=== PATIENT | male | born 1945 | race Caucasian/White ===

== ENCOUNTER 2020-11-01 09:23 | Day surgery (SDC) | payer MEDICARE ==
[2020-10-24 11:22] LABS: BASOPHILS % (AUTO) 0.5 % (0-1); EOSINOPHILS # (AUTO) 0.2 X10'3 (0-0.9); EOSINOPHILS % (AUTO) 4.4 % (0-6); LYMPHOCYTES # (AUTO) 1.3 X10'3 (1.1-4.8); LYMPHOCYTES % (AUTO) 28.3 % (21-51); MEAN CORPUSCULAR HEMOGLOBIN 29.9 PG (27.0-31.0); MEAN CORPUSCULAR HGB CONC 33.2 g/dL (33.0-36.5); MEAN CORPUSCULAR VOLUME 89.9 FL (78-98); MEAN PLATELET VOLUME 8.8 FL (7.4-10.4); MONOCYTES # (AUTO) 0.4 X10'3 (0-0.9); MONOCYTES % (AUTO) 8.7 % (2-12); NEUTROPHILS # (AUTO) 2.6 X10'3 (1.8-7.7); NEUTROPHILS % (AUTO) 58.1 % (42-75); PRE OP HEMATOCRIT 40.3 % (42.0-52.0); PRE OP HEMOGLOBIN 13.4 g/dL (14.0-17.9); PRE OP PLATELET COUNT 298 X10'3 (140-440); RED BLOOD COUNT 4.48 X10'6 (4.70-6.10); RED CELL DISTRIBUTION WIDTH 12.7 % (11.5-14.5)
[2020-10-24 11:26] LABS: CLARITY,URINE CLEAR (Clear); COLOR,URINE YELLOW (Yellow); GLUCOSE, URINE NEGATIVE (Neg); KETONES,URINE NEGATIVE (Neg); LEUKOCYTE ESTERASE ,URINE TRACE (Neg); NITRITES, URINE NEGATIVE (Neg); OCCULT BLOOD,URINE NEGATIVE (Neg); PH,URINE 7.5 (4.8-8.0); PROTEIN,URINE NEGATIVE (Neg); UROBILINOGEN,URINE 0.2 E.U/dL (0.2-1.0)
[2020-10-24 11:32] LABS: ALBUMIN 4.2 G/DL (3.4-5.0); ALBUMIN/GLOBULIN RATIO 1.1 (1.1-1.5); ALKALINE PHOSPHATASE 91 IU/L (46-116); BLOOD UREA NITROGEN 24 MG/DL (7-18); BUN/CREATININE RATIO 21.8 (5.4-32.0); CALCIUM 9.1 MG/DL (8.5-10.1); CHLORIDE 106 MMOL/L (99-107); PRE OP ALT 24 U/L (30-65); PRE OP ANION GAP 10 (8-16); PRE OP AST 21 U/L (10-37); PRE OP BILIRUB, TOTAL 0.4 MG/DL (0.0-1.0); PRE OP GLUCOSE 98 MG/DL (70-104); PRE OP POTASSIUM 5.2 MMOL/L (3.4-5.1); PRE OP SODIUM 141 MMOL/L (135-145); TOTAL CARBON DIOXIDE 24.8 MMOL/L (24-32); TOTAL PROTEIN 8.1 G/DL (6.4-8.2); eGFR 65 ML/MIN
[2020-10-24 11:47] LABS: UA COLLECTION TYPE CLN CATCH MIDSTREAM
[2020-10-24 12:09] LABS: SQUAMOUS EPITHELIAL CELL,UR FEW /LPF (FEW)
[2020-10-24 12:10] LABS: BACTERIA,URINE NONE SEEN /HPF (Neg); RBC,URINE 0-2 /HPF (0-2); WBC,URINE 0-4 /HPF (0-4)
[2020-11-01] VITALS (9 sets, daily range): BP systolic 131–147; BP diastolic 62–93
[~2020-11-01] VITALS: Ht 170.2 cm; Wt 89.6 kg
[~2020-11-01 09:23] MED LIST: AMA1T PO; ASPI-612 PO; GEMF600T89 PO; LISI-604 PO; METF-438 PO; OMEP20TA23 PO; PIRO20CA2 PO; bacitracin 15gm ointment TP ONE; ceFAZolin 2gm in dextrose, iso 50 ML IV ONE; famotidine 20mg tablet PO ONE; ringers solution, lacted 1,000 ML IV SCH
[2020-11-01] MEDS ORDERED: sevoflurane 250ml liquid IH ONE (10:18)
[2020-11-01] MEDS ORDERED: fentaNYL/PF 50MCG/1 ML 2ML syringe ONE (10:24)
[2020-11-01] MEDS ORDERED: midazolam 2 mg/2 ml injection ONE (10:25)
[2020-11-01] MEDS ORDERED: BUPIVAcaine/PF 2.5 mg/ml (0.25%) 30ml vial ONE (10:38)
[2020-11-01] MEDS ORDERED: ondansetron/PF 4mg/2ml inj ONE (10:56)
[2020-11-01] MEDS ORDERED: LIDOcaine 2% (20mg/ml) 5ml vial ONE (10:56)
[2020-11-01] MEDS ORDERED: propofol inj 20 ML IV ONE ×2 (10:56)
[2020-11-01] MEDS ORDERED: dexamethasone sod phosphate 4mg/ml inj. ONE (10:56)
[2020-11-01] MEDS ORDERED: LIDOcaine 1%/PF 5ML 10 MG/ML VIAL ONE (10:56)
[2020-11-01] MEDS ORDERED: morphine 10mg/ml inj. ONE (11:06)
[2020-11-01] MEDS ORDERED: labetalol 20mg/4ml (5mg/ml) syringe IV PRN (11:10)
[2020-11-01] MEDS ORDERED: ondansetron/PF 4mg/2ml inj IV PRN (11:10)
[2020-11-01] MEDS ORDERED: hydrALAZINE 20mg/ml inj. IV PRN (11:10)
[2020-11-01] MEDS ORDERED: acetaminophen 1,000mg/100ml IV 100 ML IV PRN (11:10)
[2020-11-01] MEDS ORDERED: HYDROmorphone/PF 0.2 MG/ML SYRINGE IV PRN ×2 (11:10)
[2020-11-01] MEDS ORDERED: proCHLORperazine 10 MG/2 ml inj IV PRN (11:10)
[2020-11-01] MEDS ORDERED: meperidine/PF 25mg/ml syringe IV PRN ×3 (11:10)
[2020-11-01] MEDS ORDERED: ringers solution, lacted 1,000 ML IV SCH (11:10)
--- NOTE | 2020-11-01 11:48 | NUR ---
Received from OR via michael, accompanied by Anesthesiologist Alvaro and report given by Anesthesiolgist. Pt sleepy with oral airway and mask to 10L sats 99%. Left forearm 20G IVF 100cc/hr, left foot wrapped with dressing and kvng wrap, boot in place. Toes exposed good cap refill. No jonas. Dressing remains CDI. Will remove oral airway when awake.
--- NOTE | 2020-11-01 13:18 | NUR ---
Pt discharged to vehicle by wheelchair without incident after IV DC'd. Dressing remains CDI, all belongings returned to patient. Boot on, pump given to patient and mask returned to patient. He states he still has no pain and he has pain meds at home already. He verbalized understanding of all DC instructions. He already has a follow up appointment.
== END 2020-11-01 13:18 | disposition home or self-care (01) ==
LOC: PAS 09:23
PROVIDERS: ATTEND Podiatrist Foot & Ankle Surgery
DX: M20.22 Hallux rigidus, left foot (principal); M19.072 Primary osteoarthritis, left ankle and foot; I10 Essential (primary) hypertension; E11.9 Type 2 diabetes mellitus without complications; K21.9 Gastro-esophageal reflux disease without esophagitis; Z79.899 Other long term (current) drug therapy; Z20.828 Contact with and (suspected) exposure to other viral communicable diseases; Z72.89 Other problems related to lifestyle; Z87.891 Personal history of nicotine dependence; Z96.652 Presence of left artificial knee joint
CPT/HCPCS: 28750; 36415; 80053; 81001; 85025; 87088; 87635; 93005; A6223; C1713; J1100; J2001; J2250; J2270; J2405; J2704; J3010; J3490; J7120; A4215; A4618; A6253; A6449; A7000